=== PATIENT | male | born 2005 | race Caucasian/White ===

== ENCOUNTER 2024-05-28 02:54 | Emergency (ER) | payer SELFPAY ==
[~2024-05-28] VITALS: Ht 183.5 cm; Wt 74.8 kg
[2024-05-28] MEDS: HYDROcodone-ACET 5/325MG TAB PO ONE (04:11)
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
[2024-05-28] MEDS ORDERED: AUG875T PO (05:14)
[2024-05-28] MEDS: AMOXICILLIN/CLAVUL 875 MG TAB PO ONE (05:15)
[2024-05-28 06:10] VITALS: BP 133/76; PULSE 107; RESP 16; TEMP 99.1; O2SAT 97
== END 2024-05-28 06:15 | disposition home or self-care (01) ==
LOC: ER 02:54
DX: S22.028A Other fracture of second thoracic vertebra, initial encounter for closed fracture (principal); L08.9 Local infection of the skin and subcutaneous tissue, unspecified; J93.9 Pneumothorax, unspecified; V89.2XXA Person injured in unspecified motor-vehicle accident, traffic, initial encounter; Y93.I9 Activity, other involving external motion; Y92.488 Other paved roadways as the place of occurrence of the external cause; Y99.8 Other external cause status
CPT/HCPCS: 70486